=== PATIENT | female | born 1965 | race African-American/Black ===

== ENCOUNTER 2017-05-19 08:01 | Inpatient (IN) | payer SELFPAY ==
[2017-05-19] MEDS ORDERED: Acetaminophen 500 MG TAB ONE (08:27)
--- NOTE | 2017-05-19 08:52 | RAD ---
CHEST ONE VIEW: History: Cough. Comparison: 06-15-15 FINDINGS: Cardiac silhouette is magnified by projection. Pulmonary vasculature is upper limits of normal. Patch y infiltrate at the left posterior lung base has progressed since the previous exam. vehicle monitor technician leads overlie the chest. IMPRESSION: Developing left lower lobe infiltrate. Clinical correlation regarding other signs and symptoms of lef t lower lobe pneumonia is required. Continued radiographic follow up after medical treatment is sugge sted to evaluate for clearing. POS: [facility]
[2017-05-19 08:53] LABS: #Lymphocytes 1.3 thou/uL (1.20-3.40); #Monocytes 1.3 thou/uL (0.11-0.59); #Neutrophils 8.4 thou/uL (1.40-6.50); %Basophils 0.3 % (0.0-1.0); %Eosinophils 0.3 % (0.0-10.0); %Monocytes 11.3 % (0.0-10.0); %Neutrophils 76.1 % (42.0-75.0); Hemoglobin 14.2 g/dL (12.0-16.0); Mean Corpuscular HGB CONC 32.2 g/dL (32.0-36.0); Mean Corpuscular Hemoglobin 30.4 pg (27.0-31.0); Mean Corpuscular Volume 94.4 fl (81.0-99.0); Mean Platelet Volume 7.6 fL (7.4-10.4); Platelet Count 290 thou/uL (130-400); RBC Distribution Width 12.9 % (11.5-14.5); Red Blood Cell (RBC) Count 4.66 mill/uL (4.20-5.40); White Blood Cell (WBC) Count 11.1 thou/uL (4.8-10.8)
[2017-05-19] MEDS ORDERED: Azithromycin 500 MG VIAL ONE (09:15)
[2017-05-19 09:16] LABS: ALT (SGPT) 28 U/L (8-55); AST (SGOT) 29 U/L (5-34); Albumin 4.3 g/dL (3.5-5.0); Alkaline Phosphatase 86 U/L (40-150); Anion Gap 17 mmol/L (10-20); BUN (Urea Nitrogen) 15 mg/dL (9.8-20.1); Bilirubin, Total 0.3 mg/dL (0.2-1.2); Calc. Creatinine Clearance 0 mL/min (70-130); Calcium 9.8 mg/dL (7.8-10.44); Carbon Dioxide 25 mmol/L (22-29); Chloride 99 mmol/L (98-107); Estimated GFR-MDRD 44; Globulin 4.3 g/dL (2.4-3.5); Glucose 102 mg/dL (70-105); Potassium 4.1 mmol/L (3.5-5.1); Protein, Total 8.6 g/dL (6.0-8.3); Sodium 137 mmol/L (136-145)
[2017-05-19] MEDS ORDERED: cefTRIAXone\\ROCEPHIN 2 GM in Sodium Chloride 0.9% 100 ML IVPB SCH (09:30)
[2017-05-19] MEDS ORDERED: Ibuprofen 200 MG TAB ONE (09:40)
[2017-05-19] MEDS ORDERED: Oseltamivir 75 MG CAP PO SCH ×2 (11:15→21:00)
[2017-05-19 12:06] VITALS: BMI 36.6
[2017-05-19] MEDS ORDERED: HYDROcodone/Acetaminophen 5/325 mg Tablet PO PRN ×2 (13:23)
[2017-05-19] MEDS ORDERED: Ondansetron HCl/PF 4 MG/2 ML Vial IVP PRN (13:23)
[2017-05-19] MEDS ORDERED: Ondansetron ODT 4 MG TAB SL PRN (13:23)
[2017-05-19] MEDS ORDERED: Acetaminophen 325 MG TAB PO PRN (13:23)
[2017-05-19] MEDS ORDERED: Loperamide HCl 2 MG CAP PO PRN (15:20)
[2017-05-19] MEDS ORDERED: hydrALAZINE 20 MG/ML VIAL SLOW IVP PRN (15:20)
[2017-05-19] MEDS ORDERED: Milk Of Magnesia 30 ML UDCUP PO PRN (15:20)
[2017-05-19] MEDS ORDERED: cefTRIAXone\\ROCEPHIN 1 GM in Sodium Chloride 0.9% 100 ML IVPB SCH (15:20)
--- NOTE | 2017-05-19 15:42 | HP ---
DATE OF ADMISSION: 05/19/2017 PRIMARY CARE PHYSICIAN: Dr. Gusman. REASON FOR ADMISSION: Not feeling well, weakness, cough, and bodyaches. HISTORY OF PRESENT ILLNESS: A 52-year-old female with past medical history of type 2 diabetes, on or al agents; chronic bronchitis; COPD; and tobacco use, who came to the hospital with bodyaches and cou gh for the last 2-3 days. She was evaluated in the ER and chest x-ray suggested pneumonia and also w as positive for flu test on swabbing. The patient is currently admitted for pneumonia and flu. The patient is already feeling better with antibiotics given at the ER. She is still having cough but sumaya dyaches are better and weakness is better. No nausea, vomiting, diarrhea. No chest pain or palpitat ion reported to me. No fever or chills currently. No skin rash. No sick contacts. PAST MEDICAL HISTORY: Positive for type 2 diabetes. HOME MEDICATIONS: She takes Glucotrol 10 mg p.o. daily. ALLERGIES: No known drug allergies. PAST SURGICAL HISTORY: She had a left hip surgery. SOCIAL HISTORY: She smokes half pack per day. Denies any alcohol or illicit drug abuse. FAMILY HISTORY: No history of any lung disease or cardiac disease. REVIEW OF SYSTEMS: The following complete review of systems was negative, unless otherwise mentioned in the HPI or below: CONSTITUTIONAL: Weight loss or gain, ability to conduct usual activities. SKIN: Rash, itching. EYES: Double vision, pain. ENT/MOUTH: Nose bleeding, neck stiffness, pain, tenderness. CARDIOVASCULAR: Palpitations, dyspnea on exertion, orthopnea. RESPIRATORY: Shortness of breath, wheezing, cough, hemoptysis, fever or night sweats. GASTROINTESTINAL: Poor appetite, abdominal pain, heartburn, nausea, vomiting, constipation, or diarrhea. GENITOURINARY: Urgency, frequency, dysuria, nocturia. MUSCULOSKELETAL: Pain, swelling. NEUROLOGIC/PSYCHIATRIC: Anxiety, depression. ALLERGY/IMMUNOLOGIC: Skin rash, bleeding tendency. PHYSICAL EXAMINATION: GENERAL: This is an obese female, in no apparent distress. VITAL SIGNS: Temperature 99.1, pulse 107, respiratory rate 18, blood pressure 107/71. HEENT: Atraumatic, normocephalic. Oral mucosa is moist. NECK: Supple. CARDIOVASCULAR: S1, S2 heard. Rate and rhythm regular. RESPIRATORY: Clear. ABDOMEN: Soft. MUSCULOSKELETAL: 1+ edema. DERMATOLOGIC: No rash. NEUROLOGIC: Alert and awake. PSYCHIATRIC: Mood and affect normal. LABORATORY DATA: Hemoglobin is 14.2, potassium is 4.1, creatinine 1.5. ASSESSMENT AND PLAN: 1. Community-acquired pneumonia. The patient was started on Rocephin and Zithromax and will be heena tored. Mild leukocytosis present. 2. Leukocytosis. Continue antibiotics. 3. Flu positive, the patient will be started on Tamiflu also 75 p.o. b.i.d. 4. Bodyaches, weakness, and type 2 diabetes. Continue home medications and monitor glucose. 5. DVT/GI prophylaxis. 6. P.r.n. order set. 7. Code status is FULL. 8. Further decision will be made based on the clinical course. The patient will be kept in observat ion.
[2017-05-19] MEDS ORDERED: Diabetic Tussin 200 MG/10 ML UDCUP PO PRN (19:15)
[2017-05-19] MEDS ORDERED: Azithromycin 500 MG in Sodium Chloride 0.9% 250 ML 250 ML IVPB SCH (21:00)
[2017-05-19] MEDS: Ketorolac Tromethamine 30 MG/ML VIAL IVP PRN (23:44)
[2017-05-20 04:58] LABS: #Monocytes 0.8 thou/uL (0.11-0.59); #Neutrophils 5.8 thou/uL (1.40-6.50); %Basophils 0.1 % (0.0-1.0); %Eosinophils 0.3 % (0.0-10.0); %Monocytes 10.5 % (0.0-10.0); %Neutrophils 76.1 % (42.0-75.0); Hemoglobin 12.7 g/dL (12.0-16.0); Mean Corpuscular HGB CONC 32.2 g/dL (32.0-36.0); Mean Corpuscular Hemoglobin 30.9 pg (27.0-31.0); Mean Corpuscular Volume 96.1 fl (81.0-99.0); Mean Platelet Volume 7.6 fL (7.4-10.4); Platelet Count 243 thou/uL (130-400); RBC Distribution Width 12.9 % (11.5-14.5); Red Blood Cell (RBC) Count 4.11 mill/uL (4.20-5.40); White Blood Cell (WBC) Count 7.6 thou/uL (4.8-10.8)
[2017-05-20 05:07] LABS: Anion Gap 13 mmol/L (10-20); BUN (Urea Nitrogen) 19 mg/dL (9.8-20.1); Calc. Creatinine Clearance 92 mL/min (70-130); Carbon Dioxide 23 mmol/L (22-29); Chloride 105 mmol/L (98-107); Estimated GFR-MDRD 62; Glucose 99 mg/dL (70-105); Potassium 4.3 mmol/L (3.5-5.1); Sodium 137 mmol/L (136-145)
[2017-05-20] MEDS: glipiZIDE 10 MG TAB PO SCH (08:21)
[2017-05-20] MEDS: Ketorolac Tromethamine 30 MG/ML VIAL IVP PRN ×2 (08:27→20:18)
[2017-05-20] MEDS ORDERED: Azithromycin 500 MG in Sodium Chloride 0.9% 250 ML 250 ML IVPB SCH (09:00)
[2017-05-20] MEDS ORDERED: cefTRIAXone\\ROCEPHIN 1 GM, Syringe 0.4 ML in Sterile Water 9.6 ML SLOW IVP SCH (10:00)
[2017-05-20] MEDS ORDERED: Oseltamivir 75 MG CAP PO SCH (11:15)
--- NOTE | 2017-05-20 17:45 | PDOC.PN ---
- Subjective Encounter Start Date: 05/20/17 Encounter Start Time: 17:44 Subjective: Seen and examined feeling better - Objective Resuscitation Status: Resuscitation Status FULL:Full Resuscitation Vital Signs & Weight: Vital Signs (12 hours) Temp Pulse Resp BP Pulse Ox 05/20/17 15:41 100.7 F H 111 H 20 121/68 99 05/20/17 11:51 98.8 F 103 H 18 102/62 97 05/20/17 07:45 101.3 F H 108 H 22 H 131/71 97 05/20/17 07:10 98.6 F 111 H 22 H Weight Weight 216 lb 11.2 oz I&O: 05/19/17 05/20/17 05/21/17 06:59 06:59 06:59 Intake Total 921 861 Balance 921 861 Result Diagrams: 05/20/17 03:51 05/20/17 03:51 Additional Labs: Accuchecks 05/20/17 05/20/17 17:02 16:28 POC Glucose 77 52 L* Phys Exam - Physical Examination Constitutional: NAD HEENT: PERRLA, moist MMs, sclera anicteric, TM's clear Neck: no nodes, no JVD, supple, full ROM Respiratory: no wheezing, no rales, no rhonchi, clear to auscultation bilateral Cardiovascular: RRR, no significant murmur, no rub Gastrointestinal: soft, non-tender, no distention, positive bowel sounds Musculoskeletal: no edema, pulses present Dx/Plan (1) Pneumonia Code(s): J18.9 - PNEUMONIA, UNSPECIFIED ORGANISM Status: Acute (2) Flu Code(s): J11.1 - FLU DUE TO UNIDENTIFIED INFLUENZA VIRUS W OTH RESP MANIFEST Status: Acute (3) Leukocytosis Code(s): D72.829 - ELEVATED WHITE BLOOD CELL COUNT, UNSPECIFIED Status: Acute - Plan plan discussed w/ family, continue antibiotics, respiratory therapy Start oral antibiotics -: continue Tamiflu -: if feeling better on oral antibiotics d/c next 24hrs * .
[2017-05-20] MEDS: Ondansetron HCl/PF 4 MG/2 ML Vial IVP PRN (20:16)
[2017-05-20] MEDS: Oseltamivir 75 MG CAP PO SCH (20:17)
[2017-05-21] MEDS: Ketorolac Tromethamine 30 MG/ML VIAL IVP PRN ×2 (03:27→10:05)
[2017-05-21] MEDS: glipiZIDE 10 MG TAB PO SCH (10:02)
[2017-05-21] MEDS: Oseltamivir 75 MG CAP PO SCH ×2 (10:02→20:55)
[2017-05-21] MEDS: Acetaminophen 500 MG TAB PO PRN (14:28)
[2017-05-21] MEDS ORDERED: Dextrose 50% Abboject 50 ML SYRINGE ONE (15:36)
[2017-05-21] MEDS ORDERED: Dextrose 50% Abboject 50 ML SYRINGE SLOW IVP SCH (16:00)
[2017-05-22] MEDS: Ondansetron HCl/PF 4 MG/2 ML Vial IVP PRN (01:10)
[2017-05-22] MEDS: Acetaminophen 500 MG TAB PO PRN (01:10)
[2017-05-22 07:37] VITALS: BP 101/69; TEMP 98.3
[2017-05-22] MEDS: Oseltamivir 75 MG CAP PO SCH (08:50)
--- NOTE | 2017-05-22 15:00 | EKG ---
Test Reason : Blood Pressure : / mmHG Vent. Rate : 131 BPM Atrial Rate : 131 BPM P-R Int : 154 ms QRS Dur : 082 ms QT Int : 298 ms P-R-T Axes : 063 011 053 degrees QTc Int : 440 ms Sinus tachycardia Possible Left atrial enlargement Borderline ECG Confirmed by TERENCE MARTINEZ D.O. ([id number]), content editor SOHA LOCKWOOD ([id number] on 05/22/2017 2:59:31 PM Referred By: JUAN Confirmed By:TERENCE MARTINEZ D.O.
== END 2017-05-22 09:15 | disposition left against medical advice (07) | DRG 195 ==
LOC: ERS 08:01 → OBSVTOIN 11:44 → 2SW 11:44 → T4-B 05-21 16:38
PROVIDERS: ADMIT Internal Medicine Nephrology; ATTEND Internal Medicine Nephrology
DX: J11.00 Influenza due to unidentified influenza virus with unspecified type of pneumonia (principal); E11.9 Type 2 diabetes mellitus without complications; F17.210 Nicotine dependence, cigarettes, uncomplicated
CPT/HCPCS: 36415; 36416; 71010; 80048; 80053; 83605; 85025; 87040; 93005; 94640; 96361; 96365; 96367; 99406; A4216; J0456; J0696; J1885; J2405; J7050; J7620

== ENCOUNTER 2017-09-01 08:13 | Outpatient (CLI) | payer OTHER ==
[2017-09-01] MEDS ORDERED: ISOVUE-370 76%-LOCM 1 ML ONE (08:17)
== END 2017-09-01 08:14 | disposition home or self-care (01) ==
LOC: BICCT 08:13
PROVIDERS: ATTEND Internal Medicine
DX: K11.8 Other diseases of salivary glands (principal)
CPT/HCPCS: 70491

== ENCOUNTER 2017-10-04 07:49 | Day surgery (SDC) | payer OTHER ==
[2017-10-01 12:31] VITALS: BMI 36.4
[2017-10-04] MEDS ORDERED: Albuterol Sulfate 2.5 mg/3 ml Neb ONE (08:28)
--- NOTE | 2017-10-04 09:41 | OP ---
DATE OF PROCEDURE: 10/04/2017 GI ENDOSCOPY NOTE SURGEON: Tony Rodriguez M.D. [employer] SURGEON: None. PROCEDURE: Esophagogastroduodenoscopy with gastric biopsies. INDICATIONS: 1. Epigastric pain. 2. Nausea. 3. Gastroesophageal reflux. MEDICATIONS: See anesthesia record. FINDINGS: After discussion of the risks, benefits and alternatives of the procedure, informed consen t was obtained and witnessed. Pre-endoscopic cardiopulmonary examination was satisfactory. Timeout was performed before sedation was achieved. Sedation was achieved with anesthesia assistance in the endoscopy unit. A Pentax adult upper endoscope was placed into the oropharynx and passed through the cricopharyngeus under direct visualization. The esophageal mucosa appeared normal throughout with a normal-appearing Z-line at 34 cm from the incisors. There is a 4-cm sliding hiatal hernia from 34-3 8 cm. The endoscope was advanced beyond this and into the stomach. Forward and retroflexed views of the entire gastric mucosa were obtained. There is some mild edema in the prepyloric area of the ant rum in a patchy distribution. Biopsies were taken from the gastric antrum and body to rule out H. py dejuan infection. The endoscope was passed through the pylorus and into the first and second portions of the duodenum which appeared normal. The upper endoscope was then completely withdrawn and the pat ient allowed to recover. The patient tolerated the procedure well. There were no immediate post-pro cedure complications. IMPRESSION: 1. A 4-cm sliding hiatal hernia. 2. Mild edema in the gastric antrum, biopsied. 3. Otherwise, normal esophagogastroduodenoscopy. RECOMMENDATIONS: 1. Trial of daily oral proton pump inhibitor for the next month, will send in a prescription for Pro tonix 40 mg daily. 2. Follow up in clinic in 1 month. 3. Nonpharmacologic antireflux measures.
[2017-10-04] MEDS ORDERED: PROPOFOL 200 MG/20 ML VIAL ONE (12:36)
[2017-10-04] MEDS ORDERED: Lidocaine 1% PF 5 ML VIAL ONE (12:36)
== END 2017-10-04 10:11 | disposition home or self-care (01) ==
LOC: SDC 07:49
PROVIDERS: ATTEND Internal Medicine
PROC: 0DB68ZX Excision of Stomach, Via Natural or Artificial Opening Endoscopic, Diagnostic (ICD-10-PCS; principal; 2017-10-04)
DX: K29.50 Unspecified chronic gastritis without bleeding (principal); K44.9 Diaphragmatic hernia without obstruction or gangrene; K21.9 Gastro-esophageal reflux disease without esophagitis; E11.22 Type 2 diabetes mellitus with diabetic chronic kidney disease; N18.1 Chronic kidney disease, stage 1; E07.9 Disorder of thyroid, unspecified; M19.90 Unspecified osteoarthritis, unspecified site; G47.30 Sleep apnea, unspecified; E78.5 Hyperlipidemia, unspecified; F17.200 Nicotine dependence, unspecified, uncomplicated; E66.9 Obesity, unspecified; Z68.36 Body mass index [BMI] 36.0-36.9, adult; Z88.8 Allergy status to other drugs, medicaments and biological substances; Z79.84 Long term (current) use of oral hypoglycemic drugs; Z79.899 Other long term (current) drug therapy; Z98.890 Other specified postprocedural states; Z86.010 Personal history of colon polyps
CPT/HCPCS: 88305; 88312; J2001; J2704; J7611

== ENCOUNTER 2018-01-18 12:15 | Outpatient (CLI) | payer OTHER | END 2018-01-18 12:16 | disposition home or self-care (01) | LOC: BICMAMMO 12:15 | PROVIDERS: ATTEND Family Medicine | DX: Z12.31 Encounter for screening mammogram for malignant neoplasm of breast (principal) | CPT/HCPCS: 77067 ==

== ENCOUNTER 2018-01-19 14:13 | Outpatient (CLI) | payer OTHER | END 2018-01-19 14:14 | disposition home or self-care (01) | LOC: BICMRI 14:13 | PROVIDERS: ATTEND Nurse Practitioner Family | DX: M47.26 Other spondylosis with radiculopathy, lumbar region (principal); M47.27 Other spondylosis with radiculopathy, lumbosacral region; M54.5 Low back pain; M54.6 Pain in thoracic spine; M47.894 Other spondylosis, thoracic region; M51.9 Unspecified thoracic, thoracolumbar and lumbosacral intervertebral disc disorder | CPT/HCPCS: 72146; 72148 ==

== ENCOUNTER 2018-02-21 08:36 | Outpatient (CLI) | payer OTHER ==
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
--- NOTE | 2018-02-21 09:36 | ULT ---
PELVIC SONOGRAM TRANSABDOMINAL IMAGING WITH DUPLEX EVALUATION: HISTORY: Pelvic pain. FINDINGS: The urinary bladder is unremarkable. Uterus has a heterogeneous echotexture measuring 7.8 cm. No fr ee fluid. The right ovary is 2.7 cm and the left is 2.5 cm. Each has a normal appearance with good color and spectral Doppler flow. Sonographic evaluation of the left groin in area of pain shows no significant abnormalities. IMPRESSION: Normal pelvic sonogram. POS: [facility]
== END 2018-02-21 08:37 | disposition home or self-care (01) ==
LOC: BICULT 08:36
PROVIDERS: ATTEND Family Medicine
DX: R10.2 Pelvic and perineal pain (principal); M16.12 Unilateral primary osteoarthritis, left hip; Z98.890 Other specified postprocedural states
CPT/HCPCS: 76856; 93976

== ENCOUNTER 2018-04-06 08:50 | Emergency (ER) | payer OTHER, SELFPAY ==
[2018-04-06 09:28] LABS: #Basophils 0.1 thou/uL (0.0-0.2); #Eosinphils 0.3 thou/uL (0.0-0.7); #Lymphocytes 3.5 thou/uL (1.20-3.40); #Monocytes 0.8 thou/uL (0.11-0.59); #Neutrophils 6.8 thou/uL (1.40-6.50); %Basophils 0.9 % (0.0-1.0); %Eosinophils 2.4 % (0.0-10.0); %Lymphocytes 30.7 % (21.0-51.0); %Monocytes 6.8 % (0.0-10.0); %Neutrophils 59.2 % (42.0-75.0); Mean Corpuscular Hemoglobin 31.5 pg (27.0-31.0); Mean Corpuscular Volume 95.4 fL (78.0-98.0); Mean Platelet Volume 7.5 fL (7.4-10.4); Platelet Count 283 thou/uL (130-400); Red Blood Cell (RBC) Count 4.13 mill/uL (4.20-5.40); White Blood Cell (WBC) Count 11.5 thou/uL (4.8-10.8)
[2018-04-06] MEDS ORDERED: Water For Inject, Bacteriostat 30 ML ONE (09:41)
[2018-04-06] MEDS ORDERED: methylPREDNISolone Sod Succ/PF 125 MG/2 ML VIAL ONE (09:41)
[2018-04-06 09:59] LABS: ALT (SGPT) 25 U/L (8-55); AST (SGOT) 20 U/L (5-34); Albumin 3.8 g/dL (3.5-5.0); Alkaline Phosphatase 92 U/L (40-150); Anion Gap 13 mmol/L (10-20); BUN (Urea Nitrogen) 15 mg/dL (9.8-20.1); Bilirubin, Total 0.5 mg/dL (0.2-1.2); CK (CPK) 136 U/L (29-168); Calc. Creatinine Clearance 0 mL/min (70-130); Calcium 9.2 mg/dL (7.8-10.44); Carbon Dioxide 24 mmol/L (22-29); Chloride 103 mmol/L (98-107); Estimated GFR-MDRD 76; Glucose 85 mg/dL (70-105); Lipase 24 U/L (8-78); Potassium 4.2 mmol/L (3.5-5.1); Protein, Total 7.8 g/dL (6.0-8.3); Sodium 136 mmol/L (136-145)
[2018-04-06 10:01] LABS: CKMB 2.1 ng/mL (0-6.6); Troponin I Less than 0.010 ng/mL (< 0.028)
[2018-04-06] MEDS ORDERED: cefTRIAXone\\ROCEPHIN 1 GM VIAL ONE (10:25)
--- NOTE | 2018-04-06 10:32 | RAD ---
FRONTAL RADIOGRAPH CHEST: Date: 04-06-18 Comparison: 05-09-17 History: Dyspnea with cough and pain. FINDINGS: There is no pneumothorax. No large volume pleural effusion. Heart and mediastinal contours are stable . There is mild increased linear density in the medial left base, likely on the basis of vascular str uctures and/or volume loss. IMPRESSION: No focal consolidation or alveolar edema. POS: [facility]
== END 2018-04-06 10:59 | disposition home or self-care (01) ==
LOC: ERS 08:50
DX: J45.901 Unspecified asthma with (acute) exacerbation (principal); J18.9 Pneumonia, unspecified organism; E78.5 Hyperlipidemia, unspecified; J44.9 Chronic obstructive pulmonary disease, unspecified; E11.9 Type 2 diabetes mellitus without complications; K21.9 Gastro-esophageal reflux disease without esophagitis; F17.210 Nicotine dependence, cigarettes, uncomplicated
CPT/HCPCS: 71045; 80053; 82553; 83690; 84484; 85025; 85379; 93005; 94640; 96374; 96375; J0696; J2930; J7620

== ENCOUNTER 2018-08-18 10:44 | Emergency (ER) | payer OTHER, SELFPAY ==
[2018-08-18] MEDS ORDERED: traMADol HCl 50 MG TAB ONE ×2 (11:06→11:10)
[2018-08-18] MEDS ORDERED: Lidocaine Viscous Sol 2% 15 ml UD Cup ONE (11:07)
== END 2018-08-18 11:24 | disposition home or self-care (01) ==
LOC: ERS 10:44
DX: J02.9 Acute pharyngitis, unspecified (principal); J45.909 Unspecified asthma, uncomplicated; E78.5 Hyperlipidemia, unspecified; J44.9 Chronic obstructive pulmonary disease, unspecified; E11.9 Type 2 diabetes mellitus without complications; F17.210 Nicotine dependence, cigarettes, uncomplicated
CPT/HCPCS: 94640; J7620

== ENCOUNTER 2018-11-07 16:25 | Emergency (ER) | payer SELFPAY ==
[2018-11-07 17:06] LABS: #Eosinphils 0.3 thou/uL (0.0-0.7); #Lymphocytes 3.7 thou/uL (1.20-3.40); #Monocytes 0.9 thou/uL (0.11-0.59); #Neutrophils 6.3 thou/uL (1.40-6.50); %Basophils 0.4 % (0.0-1.0); %Eosinophils 2.6 % (0.0-10.0); %Lymphocytes 32.9 % (21.0-51.0); %Monocytes 8.1 % (0.0-10.0); Hemoglobin 13.3 g/dL (12.0-16.0); Mean Corpuscular HGB CONC 32.9 g/dL (32.0-36.0); Mean Corpuscular Hemoglobin 30.7 pg (27.0-31.0); Mean Corpuscular Volume 93.2 fL (78.0-98.0); Mean Platelet Volume 7.8 fL (7.4-10.4); Platelet Count 288 thou/uL (130-400); RBC Distribution Width 12.9 % (11.5-14.5); Red Blood Cell (RBC) Count 4.33 mill/uL (4.20-5.40); White Blood Cell (WBC) Count 11.3 thou/uL (4.8-10.8)
[2018-11-07 17:20] LABS: Bilirubin Negative (Negative); Blood, Urine Trace (Negative); Clarity CLEAR (Clear); Glucose, Urine (Dipstick) Negative (Negative); Leukocyte Small (Negative); Nitrite Negative (Negative); Protein, Urine (Dipstick) Negative (Neg-Trace); Specific Gravity, Urine 1.008 (1.002-1.036); Urobilinogen 0.2 mg/dL (0.2-1.0)
[2018-11-07 17:22] LABS: Bacteria/HPF None Seen HPF (None Seen); Hyaline Casts/LPF 0-3 HYALINE CAST LPF (0-3 Hyaline); RBC/HPF 0-3 HPF (0-3); Squamous Epithelial 0-3 HPF (0-3); WBC/HPF 0-3 HPF (0-3)
[2018-11-07 17:28] LABS: ALT (SGPT) 19 U/L (8-55); AST (SGOT) 16 U/L (5-34); Albumin 4.1 g/dL (3.5-5.0); Alkaline Phosphatase 96 U/L (40-150); Anion Gap 14 mmol/L (10-20); BUN (Urea Nitrogen) 14 mg/dL (9.8-20.1); Bilirubin, Total 0.2 mg/dL (0.2-1.2); Calc. Creatinine Clearance 0 mL/min (70-130); Calcium 9.6 mg/dL (7.8-10.44); Carbon Dioxide 26 mmol/L (22-29); Chloride 102 mmol/L (98-107); Estimated GFR-MDRD 60; Globulin 3.9 g/dL (2.4-3.5); Glucose 60 mg/dL (70-105); Lipase 22 U/L (8-78); Potassium 4.3 mmol/L (3.5-5.1); Sodium 138 mmol/L (136-145)
== END 2018-11-07 18:22 | disposition home or self-care (01) ==
LOC: ERS 16:25
DX: R10.13 Epigastric pain (principal); E78.5 Hyperlipidemia, unspecified; J44.9 Chronic obstructive pulmonary disease, unspecified; E11.9 Type 2 diabetes mellitus without complications; K21.9 Gastro-esophageal reflux disease without esophagitis; F17.210 Nicotine dependence, cigarettes, uncomplicated; Z79.82 Long term (current) use of aspirin; Z79.51 Long term (current) use of inhaled steroids; Z79.891 Long term (current) use of opiate analgesic; Z79.899 Other long term (current) drug therapy
CPT/HCPCS: 36415; 80053; 81003; 81015; 83690; 85025

== ENCOUNTER 2018-11-18 08:50 | Outpatient (CLI) | payer OTHER ==
--- NOTE | 2018-11-18 09:46 | ULT ---
Sonogram abdomen complete HISTORY: Upper abdomen pain. FINDINGS: The gallbladder has a normal appearance without evidence of stones. Common duct is 0.2 cm. Liver is diffusely echogenic without focal mass or intrahepatic biliary dilatation. Spleen not visualized. Obscured by gas. No free fluid. Kidneys have a normal appearance. Visualized portions of the abdominal aorta and IVC are unremarkable. Pancreas is mostly obscured. IMPRESSION: No evidence of gallstones or biliary obstruction. Hepatic steatosis.
== END 2018-11-18 08:51 | disposition home or self-care (01) ==
LOC: BICULT 08:50
DX: R10.84 Generalized abdominal pain (principal); K76.0 Fatty (change of) liver, not elsewhere classified
CPT/HCPCS: 76700

== ENCOUNTER 2019-10-04 05:25 | Emergency (ER) | payer BC, SELFPAY ==
[2019-10-04] MEDS ORDERED: Ibuprofen 800 MG TAB ONE (05:41)
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
== END 2019-10-04 06:21 | disposition home or self-care (01) ==
LOC: ERS 05:25
DX: M54.5 Low back pain (principal); G89.29 Other chronic pain; E11.9 Type 2 diabetes mellitus without complications; E78.00 Pure hypercholesterolemia, unspecified; G47.30 Sleep apnea, unspecified; J44.9 Chronic obstructive pulmonary disease, unspecified; F17.210 Nicotine dependence, cigarettes, uncomplicated; Z79.51 Long term (current) use of inhaled steroids; Z79.82 Long term (current) use of aspirin; Z79.84 Long term (current) use of oral hypoglycemic drugs; Z79.899 Other long term (current) drug therapy; V47.5XXA Car driver injured in collision with fixed or stationary object in traffic accident, initial encounter
CPT/HCPCS: 72100

== ENCOUNTER 2020-09-13 17:27 | Emergency (ER) | payer BC ==
[2020-09-13] MEDS ORDERED: HYDROcodone/Acetaminophen 10/325 mg Tablet ONE (18:24)
[2020-09-13] MEDS ORDERED: Boostrix 0.5 ML (Tdap) VIAL ONE (18:25)
[2020-09-13] MEDS ORDERED: Lidocaine 1% (PF) 30 ML VIAL ONE (18:30)
== END 2020-09-13 18:39 | disposition home or self-care (01) ==
LOC: ERS 17:27
DX: L02.413 Cutaneous abscess of right upper limb (principal); E11.9 Type 2 diabetes mellitus without complications; J44.9 Chronic obstructive pulmonary disease, unspecified; E78.00 Pure hypercholesterolemia, unspecified; G47.30 Sleep apnea, unspecified; Z23 Encounter for immunization; F17.210 Nicotine dependence, cigarettes, uncomplicated
CPT/HCPCS: 90471; 90715; J2001

== ENCOUNTER 2021-07-25 00:22 | Emergency (ER) | payer SELFPAY ==
[2021-07-25 00:50] LABS: #Basophils 0.1 thou/uL (0.0-0.2); #Eosinphils 0.2 thou/uL (0.0-0.7); #Lymphocytes 2.8 thou/uL (1.20-3.40); #Monocytes 0.8 thou/uL (0.11-0.59); #Neutrophils 8.1 thou/uL (1.40-6.50); %Basophils 0.7 % (0.0-1.0); %Eosinophils 1.5 % (0.0-10.0); %Lymphocytes 23.4 % (21.0-51.0); %Monocytes 6.5 % (0.0-10.0); %Neutrophils 67.9 % (42.0-75.0); Hemoglobin 14.8 g/dL (12.0-16.0); Mean Corpuscular HGB CONC 33.5 g/dL (32.0-36.0); Mean Corpuscular Hemoglobin 31.9 pg (27.0-31.0); Mean Corpuscular Volume 95.2 fL (78.0-98.0); Mean Platelet Volume 7.9 fL (7.4-10.4); Platelet Count 292 thou/uL (130-400); RBC Distribution Width 13.1 % (11.5-14.5); Red Blood Cell (RBC) Count 4.65 mill/uL (4.20-5.40); White Blood Cell (WBC) Count 11.9 thou/uL (4.8-10.8)
[2021-07-25 01:12] LABS: Amphetamine Not Detected (NotDetected); Barbiturates Screen Not Detected (NotDetected); Benzodiazepine Screen Not Detected (NotDetected); Cocaine Metabolite Screen Detected (NotDetected); Methadone Not Detected (NotDetected); Methamphetamine Not Detected (NotDetected); Opiate Screen Not Detected (NotDetected); Oxycodone Screen Not Detected (NotDetected); Phencyclidine (PCP) Not Detected (NotDetected); THC/Cannabinoid Screen Not Detected (NotDetected); Tricyclic Screen Not Detected (NotDetected)
[2021-07-25 01:14] LABS: ALT (SGPT) 20 U/L (8-55); AST (SGOT) 26 U/L (5-34); Acetaminophen Less than 6.0 mcg/mL (10.0-30.0); Albumin 4.1 g/dL (3.5-5.0); Alcohol Less than 10 mg/dL (Less than 10); Alkaline Phosphatase 105 U/L (40-110); Anion Gap 25 mmol/L (10-20); BUN (Urea Nitrogen) 19 mg/dL (9.8-20.1); Bilirubin, Total 0.4 mg/dL (0.2-1.2); CK (CPK) 388 U/L (29-168); Calc. Creatinine Clearance 0 mL/min (70-130); Calcium 9.3 mg/dL (7.8-10.44); Carbon Dioxide 15 mmol/L (22-29); Chloride 100 mmol/L (98-107); Globulin 3.7 g/dL (2.4-3.5); Glucose 181 mg/dL (70-105); Protein, Total 7.8 g/dL (6.0-8.3); Salicylate Less than 8.0 mg/dL (15.0-30.0); Sodium 136 mmol/L (136-145)
== END 2021-07-25 04:32 ==
LOC: ERS 00:22
DX: T50.905A Adverse effect of unspecified drugs, medicaments and biological substances, initial encounter (principal); S70.312A Abrasion, left thigh, initial encounter; S70.311A Abrasion, right thigh, initial encounter; I95.9 Hypotension, unspecified; R09.02 Hypoxemia; R00.0 Tachycardia, unspecified; E11.9 Type 2 diabetes mellitus without complications; J44.9 Chronic obstructive pulmonary disease, unspecified; E78.00 Pure hypercholesterolemia, unspecified; G47.30 Sleep apnea, unspecified; F17.210 Nicotine dependence, cigarettes, uncomplicated; X58.XXXA Exposure to other specified factors, initial encounter
CPT/HCPCS: 36416; 51701; 71045; 80053; 80306; 80307; 84443; 84484; 85025; 93005

== ENCOUNTER 2021-09-23 07:15 | Observation (INO) | payer BC, OTHER, SELFPAY ==
[2021-09-23 08:00] LABS: #Basophils 0.1 thou/uL (0.0-0.2); #Eosinphils 0.2 thou/uL (0.0-0.7); #Lymphocytes 2.6 thou/uL (1.20-3.40); #Monocytes 0.8 thou/uL (0.11-0.59); #Neutrophils 6.9 thou/uL (1.40-6.50); %Basophils 0.6 % (0.0-1.0); %Eosinophils 1.6 % (0.0-10.0); %Lymphocytes 24.7 % (21.0-51.0); %Monocytes 7.5 % (0.0-10.0); %Neutrophils 65.7 % (42.0-75.0); Hemoglobin 13.7 g/dL (12.0-16.0); Mean Corpuscular HGB CONC 32.4 g/dL (32.0-36.0); Mean Corpuscular Hemoglobin 31.8 pg (27.0-31.0); Mean Platelet Volume 7.6 fL (7.4-10.4); Platelet Count 278 thou/uL (130-400); RBC Distribution Width 13.8 % (11.5-14.5); White Blood Cell (WBC) Count 10.4 thou/uL (4.8-10.8)
[2021-09-23 08:15] LABS: PTT 32.3 sec (22.9-36.1); Prothrombin Time 13.5 sec (12.0-14.7)
[2021-09-23 08:20] LABS: ALT (SGPT) 12 U/L (8-55); AST (SGOT) 15 U/L (5-34); Albumin 3.9 g/dL (3.5-5.0); Alkaline Phosphatase 108 U/L (40-110); Anion Gap 15 mmol/L (10-20); BUN (Urea Nitrogen) 22 mg/dL (9.8-20.1); Bilirubin, Total 0.3 mg/dL (0.2-1.2); Calc. Creatinine Clearance 0 mL/min (70-130); Calcium 9.5 mg/dL (7.8-10.44); Carbon Dioxide 23 mmol/L (22-29); Chloride 102 mmol/L (98-107); Globulin 3.5 g/dL (2.4-3.5); Glucose 97 mg/dL (70-105); Potassium 3.9 mmol/L (3.5-5.1); Protein, Total 7.4 g/dL (6.0-8.3); Sodium 136 mmol/L (136-145)
[2021-09-23] MEDS ORDERED: Aspirin Chewable 81 MG TAB ONE (08:26)
[2021-09-23] MEDS ORDERED: Iopamidol-370 76% 500 ML 1 ML ONE (08:50)
[2021-09-23] MEDS ORDERED: Acetaminophen 650 MG Suppository PR PRN (09:47)
[2021-09-23] MEDS ORDERED: Ondansetron ODT 4 MG TAB PO PRN (09:47)
[2021-09-23] MEDS ORDERED: Acetaminophen 325 MG TAB PO PRN (09:47)
[2021-09-23] MEDS ORDERED: Ondansetron PF 4 MG/2 ML Vial IVP PRN (09:47)
[2021-09-23] MEDS ORDERED: Senokot S 8.6-50 MG TAB PO PRN (09:47)
[2021-09-23] MEDS ORDERED: hydrALAZINE 20 MG/ML VIAL SLOW IVP PRN (09:51)
[2021-09-23] MEDS ORDERED: Dextrose 50% Abboject 50 ML SYRINGE SLOW IVP PRN (10:11)
[2021-09-23] MEDS ORDERED: Dextrose 5% in Water 1,000 ML IV PRN (10:11)
[2021-09-23] MEDS ORDERED: Insulin Regular 300 UNITS/3 ML VIAL SC PRN ×2 (10:11→10:12)
[2021-09-23 11:06] LABS: Amphetamine Not Detected (NotDetected); Barbiturates Screen Not Detected (NotDetected); Benzodiazepine Screen Not Detected (NotDetected); Cocaine Metabolite Screen Detected (NotDetected); Methadone Not Detected (NotDetected); Methamphetamine Not Detected (NotDetected); Opiate Screen Not Detected (NotDetected); Oxycodone Screen Not Detected (NotDetected); Phencyclidine (PCP) Not Detected (NotDetected); THC/Cannabinoid Screen Not Detected (NotDetected); Tricyclic Screen Not Detected (NotDetected)
[2021-09-23] MEDS ORDERED: Clopidogrel Bisulfate 75 MG TAB PO SCH (12:00)
[2021-09-23 12:46] VITALS: BMI 29.9
[2021-09-23] MEDS: Sodium Chloride 0.9% 1,000 ML IV SCH (15:28)
[2021-09-23 16:55] LABS: Magnesium 1.9 mg/dL (1.6-2.6)
[2021-09-23] MEDS: Famotidine 20 MG TAB PO SCH (20:35)
[2021-09-23] MEDS ORDERED: Atorvastatin Calcium 40 MG TAB PO SCH (21:00)
[2021-09-23] MEDS ORDERED: Famotidine 20 MG TAB PO SCH (21:00)
[2021-09-23] MEDS ORDERED: Multivit, Therapeutic 1 TAB PO SCH (21:00)
[2021-09-23] MEDS ORDERED: Famotidine/PF 20 mg/2ml Vial SLOW IVP SCH (21:00)
[2021-09-23 23:11] LABS: SARS-CoV-2 PCR by NAA Not Detected (NotDetected)
[2021-09-24] MEDS: Sodium Chloride 0.9% 1,000 ML IV SCH (03:58)
[2021-09-24 05:27] LABS: #Basophils 0.1 thou/uL (0.0-0.2); #Eosinphils 0.3 thou/uL (0.0-0.7); #Lymphocytes 3.1 thou/uL (1.20-3.40); #Monocytes 0.8 thou/uL (0.11-0.59); #Neutrophils 4.3 thou/uL (1.40-6.50); %Basophils 0.6 % (0.0-1.0); %Eosinophils 3.2 % (0.0-10.0); %Lymphocytes 35.9 % (21.0-51.0); %Monocytes 9.4 % (0.0-10.0); %Neutrophils 50.9 % (42.0-75.0); Hemoglobin 13.9 g/dL (12.0-16.0); Mean Corpuscular HGB CONC 31.9 g/dL (32.0-36.0); Mean Corpuscular Hemoglobin 31.8 pg (27.0-31.0); Mean Corpuscular Volume 99.6 fL (78.0-98.0); Mean Platelet Volume 7.6 fL (7.4-10.4); Platelet Count 275 thou/uL (130-400); RBC Distribution Width 13.7 % (11.5-14.5); Red Blood Cell (RBC) Count 4.39 mill/uL (4.20-5.40); White Blood Cell (WBC) Count 8.5 thou/uL (4.8-10.8)
[2021-09-24 05:47] LABS: Anion Gap 12 mmol/L (10-20); BUN (Urea Nitrogen) 16 mg/dL (9.8-20.1); Calc. Creatinine Clearance 85 mL/min (70-130); Calcium 8.9 mg/dL (7.8-10.44); Carbon Dioxide 25 mmol/L (22-29); Cardiac Risk 3.8 (Less than 4.5); Chloride 108 mmol/L (98-107); Cholesterol 158 mg/dl (< 200 Desired); Glucose 109 mg/dL (70-105); HDL Cholesterol 42 mg/dL (>60 Neg Risk); LDL Cholesterol, Calculated 92 mg/dL; Potassium 4.8 mmol/L (3.5-5.1); Sodium 140 mmol/L (136-145); Triglycerides 120 mg/dL (Less than 150)
[2021-09-24] MEDS: Famotidine 20 MG TAB PO SCH (08:30)
[2021-09-24] MEDS ORDERED: Enoxaparin Sodium 40 MG/0.4 ML SYRINGE SC SCH (09:00)
[2021-09-24] MEDS ORDERED: Aspirin 81 mg Enteric Coated Tablet PO SCH (09:00)
[2021-09-24] MEDS ORDERED: Aspirin 325 mg Enteric Coated Tablet PO SCH (09:00)
[2021-09-24] MEDS ORDERED: Clopidogrel Bisulfate 75 MG TAB PO SCH (09:00)
[2021-09-24 11:54] VITALS: BP 114/67; TEMP 97.9
== END 2021-09-24 14:22 | disposition home or self-care (01) ==
LOC: ERS 07:15 → ERHOLD 08:44 → NEURO 12:21
PROVIDERS: ADMIT Internal Medicine; ATTEND Internal Medicine
DX: R53.1 Weakness (principal); R20.0 Anesthesia of skin; F14.10 Cocaine abuse, uncomplicated; F17.210 Nicotine dependence, cigarettes, uncomplicated; I10 Essential (primary) hypertension; E11.9 Type 2 diabetes mellitus without complications; E78.5 Hyperlipidemia, unspecified; J44.9 Chronic obstructive pulmonary disease, unspecified; G89.29 Other chronic pain; M54.50 Low back pain, unspecified; I65.23 Occlusion and stenosis of bilateral carotid arteries; I08.1 Rheumatic disorders of both mitral and tricuspid valves; I67.2 Cerebral atherosclerosis; Z86.73 Personal history of transient ischemic attack (TIA), and cerebral infarction without residual deficits; Z79.82 Long term (current) use of aspirin; Z79.899 Other long term (current) drug therapy; Z20.822 Contact with and (suspected) exposure to COVID-19
CPT/HCPCS: 36415; 36416; 70450; 70496; 70498; 70551; 71045; 80048; 80053; 80061; 80306; 83735; 84484; 85025; 85610; 85730; 93005; 93306; 94760; 96372; G0378; J1650; J7050; Q9967; U0003; U0005

== ENCOUNTER 2021-10-22 09:54 | Inpatient (IN) | payer SELFPAY ==
[2021-10-22] MEDS ORDERED: Pantoprazole 40 MG VIAL ONE (10:26)
[2021-10-22] MEDS ORDERED: Ondansetron PF 4 MG/2 ML Vial ONE (10:26)
[2021-10-22 10:35] LABS: #Basophils 0.1 thou/uL (0.0-0.2); #Eosinphils 0.2 thou/uL (0.0-0.7); #Lymphocytes 5.1 thou/uL (1.20-3.40); #Monocytes 1.1 thou/uL (0.11-0.59); #Neutrophils 9.2 thou/uL (1.40-6.50); %Basophils 0.6 % (0.0-1.0); %Eosinophils 1.6 % (0.0-10.0); %Lymphocytes 32.3 % (21.0-51.0); %Monocytes 7.2 % (0.0-10.0); %Neutrophils 58.3 % (42.0-75.0); Hemoglobin 13.1 g/dL (12.0-16.0); Mean Corpuscular HGB CONC 32.3 g/dL (32.0-36.0); Mean Corpuscular Hemoglobin 31.6 pg (27.0-31.0); Mean Corpuscular Volume 97.8 fL (78.0-98.0); Mean Platelet Volume 7.9 fL (7.4-10.4); Platelet Count 303 thou/uL (130-400); Red Blood Cell (RBC) Count 4.14 mill/uL (4.20-5.40); White Blood Cell (WBC) Count 15.8 thou/uL (4.8-10.8)
[2021-10-22 11:08] LABS: ALT (SGPT) 17 U/L (8-55); AST (SGOT) 15 U/L (5-34); Albumin 3.6 g/dL (3.5-5.0); Alkaline Phosphatase 89 U/L (40-110); Anion Gap 14 mmol/L (10-20); BUN (Urea Nitrogen) 23 mg/dL (9.8-20.1); Bilirubin, Total 0.5 mg/dL (0.2-1.2); CK (CPK) 94 U/L (29-168); Calc. Creatinine Clearance 0 mL/min (70-130); Calcium 8.9 mg/dL (7.8-10.44); Carbon Dioxide 23 mmol/L (22-29); Chloride 105 mmol/L (98-107); Globulin 3.5 g/dL (2.4-3.5); Glucose 156 mg/dL (70-105); Lipase 24 U/L (8-78); Potassium 4.5 mmol/L (3.5-5.1); Protein, Total 7.1 g/dL (6.0-8.3); Sodium 137 mmol/L (136-145)
[2021-10-22] MEDS ORDERED: Ondansetron PF 4 MG/2 ML Vial IVP PRN (14:43)
[2021-10-22] MEDS ORDERED: Acetaminophen 325 MG TAB PO PRN (14:43)
[2021-10-22] MEDS ORDERED: Ondansetron ODT 4 MG TAB PO PRN (14:43)
[2021-10-22] MEDS ORDERED: Calcium Carbonate 500 MG ChewTAB PO PRN (14:43)
[2021-10-22 14:59] LABS: Bacteria/HPF 1+ HPF (None Seen); Bilirubin Negative (Negative); Blood, Urine 3+ (Negative); Clarity Clear (Clear); Glucose, Urine (Dipstick) Normal (Negative); Ketone, Urine Negative (Negative); Leukocyte Negative Leu/uL (Negative); Nitrite Negative (Negative); Protein, Urine (Dipstick) Negative (Neg-Trace); RBC/HPF 21-50 HPF (0-3); Specific Gravity, Urine 1.017 (1.002-1.036); Squamous Epithelial 0-3 HPF (0-3); Urobilinogen Normal mg/dL (Less than 2); WBC/HPF 0-3 HPF (0-3)
[2021-10-22 16:03] LABS: Hemoglobin 12.1 g/dL (12.0-16.0); Platelet Count 266 thou/uL (130-400)
[2021-10-22 16:06] VITALS: BMI 29.5
[2021-10-22] MEDS: Sodium Chloride 0.9% 1,000 ML IV SCH (17:42)
[2021-10-22] MEDS: cefTRIAXone\\ROCEPHIN 1 GM in Sodium Chloride 0.9% 100 ML IVPB SCH (17:42)
[2021-10-22 19:56] LABS: Amphetamine Not Detected (NotDetected); Barbiturates Screen Not Detected (NotDetected); Benzodiazepine Screen Not Detected (NotDetected); Cocaine Metabolite Screen Detected (NotDetected); Methadone Not Detected (NotDetected); Methamphetamine Not Detected (NotDetected); Opiate Screen Not Detected (NotDetected); Oxycodone Screen Not Detected (NotDetected); Phencyclidine (PCP) Not Detected (NotDetected); THC/Cannabinoid Screen Not Detected (NotDetected); Tricyclic Screen Not Detected (NotDetected)
[2021-10-22] MEDS: Pantoprazole 40 MG VIAL IVP SCH (21:19)
[2021-10-23 04:19] LABS: #Basophils 0.1 thou/uL (0.0-0.2); #Eosinphils 0.2 thou/uL (0.0-0.7); #Monocytes 0.8 thou/uL (0.11-0.59); #Neutrophils 6.4 thou/uL (1.40-6.50); %Basophils 0.8 % (0.0-1.0); %Eosinophils 2.3 % (0.0-10.0); %Lymphocytes 28.2 % (21.0-51.0); %Monocytes 7.8 % (0.0-10.0); %Neutrophils 60.8 % (42.0-75.0); Hemoglobin 11.2 g/dL (12.0-16.0); Mean Corpuscular HGB CONC 33.7 g/dL (32.0-36.0); Mean Corpuscular Hemoglobin 32.1 pg (27.0-31.0); Mean Corpuscular Volume 95.1 fL (78.0-98.0); Mean Platelet Volume 7.6 fL (7.4-10.4); Platelet Count 235 thou/uL (130-400); RBC Distribution Width 13.2 % (11.5-14.5); Red Blood Cell (RBC) Count 3.51 mill/uL (4.20-5.40); White Blood Cell (WBC) Count 10.5 thou/uL (4.8-10.8)
[2021-10-23 04:43] LABS: Anion Gap 9 mmol/L (10-20); BUN (Urea Nitrogen) 18 mg/dL (9.8-20.1); Calc. Creatinine Clearance 95 mL/min (70-130); Calcium 8.2 mg/dL (7.8-10.44); Carbon Dioxide 25 mmol/L (22-29); Chloride 108 mmol/L (98-107); Glucose 106 mg/dL (70-105); Potassium 4.4 mmol/L (3.5-5.1); Sodium 138 mmol/L (136-145)
[2021-10-23] MEDS ORDERED: Albuterol Sulfate 2.5 mg/0.5 ml Neb NEB PRN (08:37)
[2021-10-23] MEDS: Pantoprazole 40 MG VIAL IVP SCH ×2 (09:34→21:04)
[2021-10-23] MEDS: Sodium Chloride 0.9% 1,000 ML IV SCH ×2 (09:34→21:48)
[2021-10-23 12:42] LABS: Hemoglobin 11.1 g/dL (12.0-16.0); Platelet Count 225 thou/uL (130-400)
[2021-10-23] MEDS ORDERED: diphenhydrAMINE 50 MG/ML VIAL IVP SCH (13:15)
[2021-10-23] MEDS: cefTRIAXone\\ROCEPHIN 1 GM in Sodium Chloride 0.9% 100 ML IVPB SCH (17:35)
[2021-10-23] MEDS ORDERED: GoLYTELY 4,000 ml Bottle PO SCH (20:45)
[2021-10-23] MEDS: Atorvastatin Calcium 40 MG TAB PO SCH (21:04)
[2021-10-23 21:32] LABS: Hemoglobin 9.1 g/dL (12.0-16.0); Platelet Count 222 thou/uL (130-400)
[2021-10-24 04:36] LABS: #Basophils 0.1 thou/uL (0.0-0.2); #Eosinphils 0.2 thou/uL (0.0-0.7); #Lymphocytes 2.9 thou/uL (1.20-3.40); #Monocytes 0.6 thou/uL (0.11-0.59); #Neutrophils 5.7 thou/uL (1.40-6.50); %Basophils 1.1 % (0.0-1.0); %Eosinophils 2.2 % (0.0-10.0); %Lymphocytes 30.5 % (21.0-51.0); %Monocytes 6.5 % (0.0-10.0); %Neutrophils 59.6 % (42.0-75.0); Hemoglobin 9.7 g/dL (12.0-16.0); Mean Corpuscular HGB CONC 34.2 g/dL (32.0-36.0); Mean Corpuscular Hemoglobin 32.1 pg (27.0-31.0); Mean Corpuscular Volume 93.6 fL (78.0-98.0); Mean Platelet Volume 7.6 fL (7.4-10.4); Platelet Count 213 thou/uL (130-400); RBC Distribution Width 13.6 % (11.5-14.5); Red Blood Cell (RBC) Count 3.03 mill/uL (4.20-5.40); White Blood Cell (WBC) Count 9.6 thou/uL (4.8-10.8)
[2021-10-24 04:59] LABS: Anion Gap 9 mmol/L (10-20); BUN (Urea Nitrogen) 21 mg/dL (9.8-20.1); Calc. Creatinine Clearance 92 mL/min (70-130); Calcium 8.2 mg/dL (7.8-10.44); Carbon Dioxide 28 mmol/L (22-29); Chloride 106 mmol/L (98-107); Glucose 93 mg/dL (70-105); Potassium 4.2 mmol/L (3.5-5.1); Sodium 139 mmol/L (136-145)
[2021-10-24] MEDS: Pantoprazole 40 MG VIAL IVP SCH ×2 (08:07→20:31)
[2021-10-24] MEDS: Sodium Chloride 0.9% 1,000 ML IV SCH ×2 (08:17→22:26)
[2021-10-24] MEDS ORDERED: PROPOFOL 200 MG/20 ML VIAL ONE (11:08)
[2021-10-24] MEDS ORDERED: Promethazine HCl 25 MG/ML VIAL IM PRN (11:48)
[2021-10-24] MEDS ORDERED: Promethazine HCl 25 MG/ML VIAL IVPB PRN (11:48)
[2021-10-24] MEDS ORDERED: Ondansetron HCl/PF 4 MG/2 ML Vial IVP PRN (11:48)
[2021-10-24] MEDS: cefTRIAXone\\ROCEPHIN 1 GM in Sodium Chloride 0.9% 100 ML IVPB SCH (17:18)
[2021-10-24] MEDS: Atorvastatin Calcium 40 MG TAB PO SCH (20:31)
[2021-10-25 04:58] LABS: #Eosinphils 0.2 thou/uL (0.0-0.7); #Lymphocytes 3.1 thou/uL (1.20-3.40); #Monocytes 0.9 thou/uL (0.11-0.59); #Neutrophils 6.7 thou/uL (1.40-6.50); %Basophils 0.1 % (0.0-1.0); %Eosinophils 2.3 % (0.0-10.0); %Lymphocytes 28.1 % (21.0-51.0); %Monocytes 7.8 % (0.0-10.0); %Neutrophils 61.6 % (42.0-75.0); Hemoglobin 7.7 g/dL (12.0-16.0); Mean Corpuscular HGB CONC 33.9 g/dL (32.0-36.0); Mean Corpuscular Hemoglobin 32.6 pg (27.0-31.0); Mean Corpuscular Volume 96.3 fL (78.0-98.0); Mean Platelet Volume 7.6 fL (7.4-10.4); Platelet Count 179 thou/uL (130-400); RBC Distribution Width 13.5 % (11.5-14.5); Red Blood Cell (RBC) Count 2.37 mill/uL (4.20-5.40); White Blood Cell (WBC) Count 10.9 thou/uL (4.8-10.8)
[2021-10-25] MEDS: Sodium Chloride 0.9% 1,000 ML IV SCH (09:14)
[2021-10-25 14:08] LABS: Hemoglobin 7.7 g/dL (12.0-16.0); Platelet Count 196 thou/uL (130-400)
[2021-10-25] MEDS: Atorvastatin Calcium 40 MG TAB PO SCH (20:24)
[2021-10-25 22:16] LABS: Hemoglobin 7.6 g/dL (12.0-16.0); Platelet Count 213 thou/uL (130-400)
[2021-10-26 04:19] LABS: #Eosinphils 0.4 thou/uL (0.0-0.7); #Lymphocytes 2.9 thou/uL (1.20-3.40); #Monocytes 0.7 thou/uL (0.11-0.59); #Neutrophils 5.5 thou/uL (1.40-6.50); %Basophils 0.1 % (0.0-1.0); %Eosinophils 4.1 % (0.0-10.0); %Lymphocytes 30.4 % (21.0-51.0); %Monocytes 7.4 % (0.0-10.0); Hemoglobin 7.7 g/dL (12.0-16.0); Mean Corpuscular HGB CONC 33.7 g/dL (32.0-36.0); Mean Corpuscular Hemoglobin 32.7 pg (27.0-31.0); Mean Platelet Volume 7.6 fL (7.4-10.4); Platelet Count 219 thou/uL (130-400); RBC Distribution Width 13.4 % (11.5-14.5); Red Blood Cell (RBC) Count 2.35 mill/uL (4.20-5.40); White Blood Cell (WBC) Count 9.6 thou/uL (4.8-10.8)
[2021-10-26 04:39] LABS: Anion Gap 9 mmol/L (10-20); BUN (Urea Nitrogen) 15 mg/dL (9.8-20.1); Calc. Creatinine Clearance 105 mL/min (70-130); Calcium 8.4 mg/dL (7.8-10.44); Carbon Dioxide 28 mmol/L (22-29); Chloride 107 mmol/L (98-107); Glucose 115 mg/dL (70-105); Potassium 3.9 mmol/L (3.5-5.1); Sodium 140 mmol/L (136-145)
[2021-10-26] MEDS: Sodium Chloride 0.9% 1,000 ML IV SCH (05:59)
[2021-10-26 11:38] VITALS: BP 105/52; TEMP 98
== END 2021-10-26 13:37 | disposition home or self-care (01) | DRG 378 ==
LOC: ERS 09:54 → ERHOLD 11:26 → 2NO 15:30
PROVIDERS: ADMIT Internal Medicine; ATTEND Internal Medicine
PROC: 30233N1 Transfusion of Nonautologous Red Blood Cells into Peripheral Vein, Percutaneous Approach (ICD-10-PCS; principal; 2021-10-22)
PROC: 0DB98ZX Excision of Duodenum, Via Natural or Artificial Opening Endoscopic, Diagnostic (ICD-10-PCS; 2021-10-24)
PROC: 0DB48ZX Excision of Esophagogastric Junction, Via Natural or Artificial Opening Endoscopic, Diagnostic (ICD-10-PCS; 2021-10-24)
DX: K31.811 Angiodysplasia of stomach and duodenum with bleeding (principal); D62 Acute posthemorrhagic anemia; N17.9 Acute kidney failure, unspecified; K57.31 Diverticulosis of large intestine without perforation or abscess with bleeding; Z20.822 Contact with and (suspected) exposure to COVID-19; E11.9 Type 2 diabetes mellitus without complications; E78.5 Hyperlipidemia, unspecified; G89.29 Other chronic pain; J44.9 Chronic obstructive pulmonary disease, unspecified; M54.50 Low back pain, unspecified; F14.10 Cocaine abuse, uncomplicated; K44.9 Diaphragmatic hernia without obstruction or gangrene; F17.210 Nicotine dependence, cigarettes, uncomplicated; I10 Essential (primary) hypertension; Z79.51 Long term (current) use of inhaled steroids; Z79.82 Long term (current) use of aspirin; Z79.899 Other long term (current) drug therapy; Z86.73 Personal history of transient ischemic attack (TIA), and cerebral infarction without residual deficits
CPT/HCPCS: 36415; 36430; 71045; 80048; 80053; 80306; 81003; 81015; 82550; 83690; 83735; 83880; 84484; 85025; 86850; 86900; 86901; 87086; 88305; 88342; 93005; C9113; J0696; J2405; J2704; J3490; J7050; P9016; U0003; U0005

== ENCOUNTER 2023-12-08 11:07 | Emergency (ER) | payer SELFPAY ==
[2023-12-08 12:10] LABS: #Basophils Less than 0.03 10x3/uL (0.0-0.2); %Basophils 0.2 % (0.0-1.0); %Eosinophils 4.4 % (0.0-10.0); %Monocytes 6.8 % (0.0-10.0); %Neutrophils 62.4 % (42.0-75.0); Hematocrit 41.1 % (36.0-47.0); Hemoglobin 13.6 g/dL (12.0-16.0); Mean Corpuscular HGB CONC 33.1 g/dL (32.0-36.0); Mean Corpuscular Hemoglobin 31.4 pg (27.0-31.0); Mean Corpuscular Volume 94.9 fL (78.0-98.0); Mean Platelet Volume 10.1 fL (7.4-10.4); Platelet Count 312 10x3/uL (130-400); RBC Distribution Width 14.3 % (11.5-14.5); Red Blood Cell (RBC) Count 4.33 mill/uL (4.20-5.40)
[2023-12-08 12:41] LABS: CRP,High Sensitivity (Inhouse) 1.82 mg/dL (< or = 0.5)
[2023-12-08 12:42] LABS: ALT (SGPT) 12 U/L (8-55); AST (SGOT) 18 U/L (5-34); Albumin 3.4 g/dL (3.5-5.0); Alkaline Phosphatase 107 U/L (40-110); Anion Gap 12 mmol/L (10-20); BUN (Urea Nitrogen) 21 mg/dL (9.8-20.1); Bilirubin, Total 0.3 mg/dL (0.2-1.2); Calc. Creatinine Clearance 0 mL/min (70-130); Calcium 9.7 mg/dL (7.8-10.44); Carbon Dioxide 27 mmol/L (22-29); Chloride 106 mmol/L (98-107); Estimated GFR 60; Globulin 4.4 g/dL (2.4-3.5); Glucose 112 mg/dL (70-105); Potassium 4.2 mmol/L (3.5-5.1); Protein, Total 7.8 g/dL (6.0-8.3); Sodium 141 mmol/L (136-145)
== END 2023-12-08 15:07 | disposition home or self-care (01) ==
LOC: ERS 11:07
DX: S61.200A Unspecified open wound of right index finger without damage to nail, initial encounter (principal); L03.011 Cellulitis of right finger; F17.200 Nicotine dependence, unspecified, uncomplicated; E78.5 Hyperlipidemia, unspecified; E11.9 Type 2 diabetes mellitus without complications; Z79.899 Other long term (current) drug therapy; W26.8XXA Contact with other sharp object(s), not elsewhere classified, initial encounter
CPT/HCPCS: 36415; 80053; 85025; 86141